=== PATIENT | male | born 1960 | race Caucasian/White ===

== ENCOUNTER 2017-03-05 09:06 | Emergency (ER) | payer BC ==
--- NOTE | 2017-03-05 09:18 | Emergency Department Report ---
Chief Complaint: Abdominal Pain Stated Complaint: ABD PAIN Time Seen by Provider: 03/05/17 09:16 - HPI History of Present Illness: lower abd pain since 0200. hx kidney stone - ROS Review of Systems: - dysuria - hematuria + n/ v (v x 1) - Exam Physical Exam: pt looks well, non toxic. abd soft, llq ttp MSE screening note: Focused history and physical exam performed. Due to findings the following was ordered: labs ED Disposition for MSE Condition: Stable
[2017-03-05 09:43] LABS: Basophils % (Auto) 0.1 % (0.0-1.8); Eosinophils % (Auto) 0.4 % (0.0-4.3); Hematocrit 42.4 % (35.5-45.6); Hemoglobin 14.1 gm/dl (11.8-15.2); Mean Corpuscular HGB Conc 33 % (32-34); Mean Corpuscular Hemoglobin 30 pg (28-32); Mean Corpuscular Volume 90 fl (84-94); Platelet Count 187 K/mm3 (140-440); Red Blood Count 4.71 M/mm3 (3.65-5.03); Red Cell Distribution Width 13.9 % (13.2-15.2); White Blood Count 11.3 K/mm3 (4.5-11.0)
[2017-03-05 09:55] LABS: Alanine Aminotransferase 26 units/L (7-56); Albumin 4.3 g/dL (3.9-5); Albumin/Globulin Ratio 1.4 %; Alkaline Phosphatase 63 units/L (35-129); Anion Gap 16 mmol/L; Blood Urea Nitrogen 16 mg/dL (9-20); Calcium 9.1 mg/dL (8.4-10.2); Carbon Dioxide 23 mmol/L (22-30); Chloride 107.7 mmol/L (98-107); Glucose 145 mg/dL (75-100); Lipase 23 units/L (13-60); Potassium 4.1 mmol/L (3.6-5.0); Sodium 143 mmol/L (137-145); Total Protein 7.3 g/dL (6.3-8.2)
[2017-03-05 13:59] LABS: Bilirubin,Urine NEG (Negative); Blood,Urine MOD (Negative); Ketones,Urine TR mg/dL (Negative); Leukocyte Esterase,Urine NEG (Negative); Mucus,Urine 3+ /HPF; Nitrite,Urine NEG (Negative); Urobilinogen,Urine < 2.0 mg/dL (<2.0)
[2017-03-05 14:10] LABS: WBC,Urine < 1.0 /HPF (0.0-6.0)
--- NOTE | 2017-03-05 16:58 | Emergency Department Report ---
HPI - General Chief Complaint: Abdominal Pain Time Seen by Provider: 03/05/17 09:16 - HPI HPI: Room 24 The patient is a 56-year-old male presenting with chief complaint of abdominal pain. The patient states his 02:00 there is at rest in his bed when he developed nausea vomiting and left lower quadrant abdominal pain. Patient states she began to vomit again and his pain increase is a subsequently went to a clinic for evaluation. Patient states she was administered a nonnarcotic pain medication and sent to the ED for evaluation. The patient states the pain has subsided dramatically and now only gives it a score of 2-3/10. Patient denies any fever or dysuria but states his urine has appeared slightly darker. The patient currently states he does not need medication for pain Location: Left lower quadrant Duration: Constant since 02:00 Quality: Punching Severity: 2-3/10 Modifying factors: [see above] Context: [see above] Mode of transportation: [not driving] ED Past Medical Hx - Past Medical History Previous Medical History?: Yes Hx Kidney Stones: Yes (approximately 15 years ago) - Surgical History Past Surgical History?: No - Family History Family history: no significant - Social History Smoking Status: Never Smoker Substance Use Type: Alcohol (occasional) - Medications Home Medications: Home Medications Medication Instructions Recorded Confirmed Last Taken Type Ibuprofen [Motrin 800 MG tab] 800 mg PO Q8HR PRN #20 tablet 03/05/17 Unknown Rx Promethazine [Phenergan TAB] 25 mg PO Q6HR PRN #20 tab 03/05/17 Unknown Rx Promethazine [Phenergan] 25 mg UT Q6HR PRN #5 supp.rect 03/05/17 Unknown Rx oxyCODONE /ACETAMINOPHEN [Percocet 1 - 2 tab PO Q6HR PRN #20 tablet 03/05/17 Unknown Rx 5/325] ED Review of Systems ROS: Stated complaint: ABD PAIN Other details as noted in HPI Comment: All other systems reviewed and negative Constitutional: denies: chills, fever Eyes: denies: eye pain, eye discharge, vision change ENT: denies: ear pain, throat pain Respiratory: denies: cough, shortness of breath, wheezing Cardiovascular: denies: chest pain, palpitations Endocrine: no symptoms reported Gastrointestinal: nausea, vomiting. denies: abdominal pain, diarrhea Genitourinary: denies: urgency, dysuria Musculoskeletal: denies: back pain, joint swelling, arthralgia Skin: denies: rash, lesions Neurological: denies: headache, weakness, paresthesias Psychiatric: denies: anxiety, depression Hematological/Lymphatic: denies: easy bleeding, easy bruising Physical Exam - Physical Exam Vital Signs: Vital Signs 03/05/17 03/05/17 03/05/17 09:16 16:28 16:30 Temperature 97.4 F L Pulse Rate 99 H 55 L 55 L Respiratory 16 15 14 Rate Blood Pressure 140/90 146/87 Blood Pressure [Right] O2 Sat by Pulse 100 100 100 Oximetry 03/05/17 16:34 Temperature Pulse Rate 52 L Respiratory 18 Rate Blood Pressure Blood Pressure 145/87 [Right] O2 Sat by Pulse 100 Oximetry Physical Exam: GENERAL: The patient is well-developed well-nourished male lying on stretcher not appearing to be in acute distress. [] HEENT: Normocephalic. Atraumatic. Extraocular motions are intact. Patient has moist mucous membranes. NECK: Supple. Trachea midline CHEST/LUNGS: Clear to auscultation. There is no respiratory distress noted. HEART/CARDIOVASCULAR: Regular. There is no tachycardia. There is no gallop rub or murmur. ABDOMEN: Abdomen is soft, nontender. Patient has normal bowel sounds. There is no abdominal distention. SKIN: There is no rash. There is no edema. There is no diaphoresis. NEURO: The patient is awake, alert, and oriented. The patient is cooperative. The patient has normal speech MUSCULOSKELETAL: There is no CVA tenderness. There is no evidence of acute injury. ED Course Vital Signs 03/05/17 03/05/17 03/05/17 09:16 16:28 16:30 Temperature 97.4 F L Pulse Rate 99 H 55 L 55 L Respiratory 16 15 14 Rate Blood Pressure 140/90 146/87 Blood Pressure [Right] O2 Sat by Pulse 100 100 100 Oximetry 03/05/17 16:34 Temperature Pulse Rate 52 L Respiratory 18 Rate Blood Pressure Blood Pressure 145/87 [Right] O2 Sat by Pulse 100 Oximetry - Reevaluation(s) Reevaluation #1: 03/05/17 18:18 Patient remains pain control sitting comfortably on a stretcher. Patient gives his pain a score of 2/10. The patient's CAT scan was discussed with him the need for urological follow-up with stress. Patient states he is visiting from out of town and plans on going home soon to be evaluated. Patient admonished should he develop fever the concern for an infected kidney stone increases and needs to be addressed urgently. Patient verbalizes understanding. ED Medical Decision Making - Lab Data Result diagrams: 03/05/17 09:27 03/05/17 09:27 Laboratory Tests 03/05/17 03/05/17 03/05/17 09:27 09:27 Unknown WBC 11.3 H RBC 4.71 Hgb 14.1 Hct 42.4 MCV 90 MCH 30 MCHC 33 RDW 13.9 Plt Count 187 Lymph % (Auto) 7.4 L [place] % (Auto) 5.2 Eos % (Auto) 0.4 Baso % (Auto) 0.1 Lymph # 0.8 L [place] # 0.6 Eos # 0.0 Baso # 0.0 Seg Neutrophils % 86.9 H Seg Neutrophils # 9.9 H Sodium 143 Potassium 4.1 Chloride 107.7 H Carbon Dioxide 23 Anion Gap 16 BUN 16 Creatinine 1.0 Estimated GFR > 60 BUN/Creatinine Ratio 16.00 Glucose 145 H Calcium 9.1 Total Bilirubin 0.40 AST 25 ALT 26 Alkaline Phosphatase 63 Total Protein 7.3 Albumin 4.3 Albumin/Globulin Ratio 1.4 Lipase 23 Urine Color Dimple Urine Turbidity Cloudy Urine pH 5.0 Ur Specific [place] 1.030 Urine Protein 100 mg/dl Urine Glucose (UA) Neg Urine Ketones Tr Urine Blood Mod Urine Nitrite Neg Urine Bilirubin Neg Urine Urobilinogen < 2.0 Ur Leukocyte Esterase Neg Urine WBC (Auto) < 1.0 Urine RBC (Auto) 49.0 Urine Mucus 3+ - Radiology Data Radiology results: report reviewed (CT abdomen and pelvis), image reviewed (CT abdomen and pelvis) CT abdomen and pelvis (read by radiologist)-9 x 5 mm stone in the left UPJ causes moderate left-sided hydronephrosis. 3 tiny nonobstructing stones are seen in the right kidney. - Differential Diagnosis renal colic, bladder mass, renal mass, diverticulitis Critical care attestation.: If time is entered above; I have spent that time in minutes in the direct care of this critically ill patient, excluding procedure time. ED Disposition Clinical Impression: Acute abdominal pain in left lower quadrant, Renal colic on left side Disposition: DC-01 TO HOME OR SELFCARE Is pt being admited?: No Does the pt Need Aspirin: No Condition: Stable Instructions: Renal Colic (ED) Additional Instructions: Return to the emergency department immediately should you develop worsening symptoms, fever, inability to tolerate food or liquid or any other concerns. Prescriptions: Ibuprofen [Motrin 800 MG tab] 800 mg PO Q8HR PRN #20 tablet PRN Reason: Pain oxyCODONE /ACETAMINOPHEN [Percocet 5/325] 1 - 2 tab PO Q6HR PRN #20 tablet PRN Reason: Pain Promethazine [Phenergan TAB] 25 mg PO Q6HR PRN #20 tab PRN Reason: Nausea Promethazine [Phenergan] 25 mg UT Q6HR PRN #5 supp.rect PRN Reason: Vomiting Referrals: ZELALEM BURK MD [Staff Physician] - [facility] (Dr. Burk is a urologist. Please follow up with him or your own urologist as soon as possible for further evaluation) Time of Disposition: 18:18
--- NOTE | 2017-03-05 17:53 | Cat Scan Report ---
FINAL REPORT PROCEDURE: CT ABDOMEN PELVIS WO CON TECHNIQUE: Computerized axial tomography of the abdomen and pelvis was performed without intravenous contrast. This study is performed without intravascular contrast material and its sensitivity for abdominal and pelvic pathology, including neoplasms, inflammation, abscess, free fluid, thrombosis, arterial dissection and infarction, is reduced compared with a contrast enhanced study. HISTORY: LLQ pain, nausea vomiting, hematuria COMPARISON: No prior studies are available for comparison. FINDINGS: Spleen and liver appear normal. The gallbladder and pancreas display no abnormalities. Adrenal glands and abdominal aorta are normal in size. Three tiny stones, measuring approximately a millimeter in size each, are seen in the right kidney. Left kidney is enlarged with prominent increased perinephric streaky densities. There is a 9 x 5 millimeter stone in the left UPJ causing moderate left-sided hydronephrosis. No other left renal or ureteral stones are seen. Bladder appears normal. Prostate gland is normal in size. Moderate-sized right inguinal hernia is seen, containing fat with mild fatty distention of the left inguinal canal. There is no free pelvic fluid. Normal appendix is seen. No suggestion of bowel obstruction is seen. IMPRESSION: 9 x 5 millimeter stone in the left UPJ causes moderate left-sided hydronephrosis. Three tiny nonobstructing stones are seen in the right kidney. Right inguinal hernia contains fat and extends into the region of the scrotum.
[2017-03-05] MEDS ORDERED: PERCOCET 5/325 PO ONE (18:13)
[2017-03-05 19:06] VITALS: BP 137/84
== END 2017-03-05 18:30 | disposition home or self-care (01) ==
LOC: ED 09:06
DX: N23 Unspecified renal colic (principal); R10.32 Left lower quadrant pain
CPT/HCPCS: 36415; 74176; 80053; 81001; 83690; 85025; 99284